=== PATIENT | female | born 1990 | race Hispanic/Latino ===

== ENCOUNTER 2022-02-21 19:57 | Day surgery (SDC) | payer OTHER ==
[2022-02-21] MEDS ORDERED: hydrALAZINE 20 MG/ML VIAL SLOW IVP PRN (21:40)
== END 2022-02-22 | disposition home or self-care (01) ==
LOC: CSHLD/OP 19:57
PROVIDERS: ATTEND Obstetrics & Gynecology
DX: O99.891 Other specified diseases and conditions complicating pregnancy (principal); R03.0 Elevated blood-pressure reading, without diagnosis of hypertension; O99.283 Endocrine, nutritional and metabolic diseases complicating pregnancy, third trimester; E03.9 Hypothyroidism, unspecified; O34.219 Maternal care for unspecified type scar from previous cesarean delivery; Z3A.34 34 weeks gestation of pregnancy; Z87.891 Personal history of nicotine dependence

== ENCOUNTER 2022-03-03 22:26 | Inpatient (IN) | payer OTHER ==
[2022-03-03] MEDS ORDERED: hydrALAZINE 20 MG/ML VIAL SLOW IVP PRN (22:45)
[2022-03-03 23:02] VITALS: BMI 30.2
[2022-03-03 23:33] LABS: #Eosinphils 0.1 10x3/uL (0.0-0.5); #Monocytes 0.8 10x3/uL (0.0-1.1); #Neutrophils 5.2 10x3/uL (1.5-8.4); %Basophils 0.2 % (0.0-2.0); %Eosinophils 0.9 % (0.0-6.0); %Lymphocytes 23.4 % (18.0-47.0); %Monocytes 10.3 % (0.0-10.0); %Neutrophils 63.8 % (40.0-75.0); Hemoglobin 10.3 g/dL (12.0-15.5); Mean Corpuscular HGB CONC 34.9 g/dL (32.0-36.0); Mean Corpuscular Hemoglobin 34.3 pg (27.0-33.0); Mean Corpuscular Volume 98.3 fl (81.6-98.3); Mean Platelet Volume 12.7 fl (7.4-10.4); Platelet Count 143 10x3/uL (150-450); White Blood Cell (WBC) Count 8.1 10x3/uL (3.5-10.5)
[2022-03-03 23:43] LABS: AST (SGOT) 23 U/L (5-34); Anion Gap 14 mmol/L (10-20); BUN (Urea Nitrogen) 11 mg/dL (7.0-18.7); Calc. Creatinine Clearance 146 mL/min (70-130); Calcium 9.3 mg/dL (7.8-10.44); Carbon Dioxide 22 mmol/L (22-29); Chloride 102 mmol/L (98-107); Glucose 80 mg/dL (70-105); Potassium 3.9 mmol/L (3.5-5.1)
[2022-03-03 23:55] LABS: Sodium 134 mmol/L (136-145)
[2022-03-04] MEDS: Lactated Ringer's 1,000 ML IV SCH ×2 (00:20→13:02)
[2022-03-04 00:28] LABS: Creatinine, Urine Less than 20.00 mg/dL (47-110)
[2022-03-04 01:18] LABS: Protein, Urine Random Quant 240 mg/dL (1-14)
[2022-03-04] MEDS ORDERED: Bicitra 30 ML UDCUP PO PRN (02:08)
[2022-03-04] MEDS ORDERED: Butorphanol Tartrate 1 MG/ML VIAL SLOW IVP PRN (02:08)
[2022-03-04] MEDS ORDERED: hydrALAZINE 20 MG/ML VIAL SLOW IVP PRN (02:08)
[2022-03-04] MEDS ORDERED: Ondansetron PF 4 MG/2 ML Vial IVP PRN ×2 (02:08→08:14)
[2022-03-04] MEDS ORDERED: Zolpidem Tartrate 5 MG TAB PO PRN (02:08)
[2022-03-04] MEDS ORDERED: Calcium Gluc 4.6 MEQ/10 ML (100 MG/ML) SLOW IVP PRN (02:08)
[2022-03-04] MEDS ORDERED: Promethazine HCl 25 MG/ML VIAL IM PRN ×2 (02:08→08:14)
[2022-03-04] MEDS ORDERED: Lorazepam 2 MG/ML VIAL SLOW IVP PRN (02:08)
[2022-03-04] MEDS ORDERED: Famotidine/PF 20 mg/2ml Vial SLOW IVP PRN (02:08)
[2022-03-04] MEDS ORDERED: ceFAZolin 2 GM/Dextrose 50 ML 2 GM in Premix Bag 1 BAG IVPB SCH (02:15)
[2022-03-04] MEDS ORDERED: Magnesium Sulfate 20 gm/500 ml 20 GM/500 ML BAG IVPB SCH ×2 (02:15)
[2022-03-04] MEDS ORDERED: Magnesium Sulfate 20 gm/500 ml 20 GM/500 ML BAG ONE (02:19)
[2022-03-04 03:24] LABS: Hemoglobin 10.9 g/dL (12.0-15.5); Mean Corpuscular HGB CONC 34.2 g/dL (32.0-36.0); Mean Corpuscular Hemoglobin 33.9 pg (27.0-33.0); Mean Corpuscular Volume 99.1 fl (81.6-98.3); Mean Platelet Volume 13.4 fl (7.4-10.4); Platelet Count 161 10x3/uL (150-450); RBC Distribution Width 14.1 % (11.5-14.5); Red Blood Cell (RBC) Count 3.22 10x6/uL (3.90-5.03); White Blood Cell (WBC) Count 9.3 10x3/uL (3.5-10.5)
[2022-03-04 03:32] LABS: Hep B Surf Ag Non-Reactive S/CO (NonReactive); Syphilis Antibody Nonreactive (Nonreactive); Syphilis Antibody Index 0.03 S/CO (<1.00 Non-Reactive)
[2022-03-04 03:40] LABS: HBSAg Index 0.19 S/CO (0-0.99)
[2022-03-04 05:05] LABS: SARS-CoV-2 NAA Rapid Test Not Detected (NotDetected)
[2022-03-04] MEDS ORDERED: Phenylephrine 40 MG/NS 250 ML 250 ML ONE (07:10)
[2022-03-04] MEDS ORDERED: Morphine PF 10 MG/10 ML VIAL ONE (07:10)
[2022-03-04] MEDS ORDERED: PHENYLEPHRINE-NS 100 MCG/ML 10 ML SYRINGE ONE (07:10)
[2022-03-04] MEDS ORDERED: Oxytocin 10 UNITS/ML VIAL ONE ×2 (07:52→08:03)
[2022-03-04] MEDS ORDERED: Meperidine HCl/PF 25 MG/ML VIAL ONE ×2 (07:52→09:28)
[2022-03-04] MEDS ORDERED: Ondansetron PF 4 MG/2 ML Vial ONE (07:54)
[2022-03-04] MEDS ORDERED: Midazolam HCl 2 mg/2 ml Vial ONE ×2 (07:55→09:28)
[2022-03-04] MEDS ORDERED: Ketorolac Tromethamine 30 MG/ML VIAL ONE (08:04)
[2022-03-04] MEDS ORDERED: Naloxone HCl 0.4 mg/ml Vial IVP PRN ×2 (08:14)
[2022-03-04] MEDS ORDERED: diphenhydrAMINE 50 MG/ML VIAL IVP PRN (08:14)
[2022-03-04] MEDS ORDERED: Moisturizing Cream (Eucerin) 113 GM JAR TOP PRN (08:14)
[2022-03-04] MEDS ORDERED: Meperidine HCl/PF 25 MG/ML VIAL SLOW IVP PRN (08:14)
[2022-03-04] MEDS ORDERED: Promethazine HCl 25 MG SUPP PR PRN (08:14)
[2022-03-04] MEDS ORDERED: Ondansetron HCl/PF 4 MG/2 ML Vial IVP PRN (08:14)
[2022-03-04] MEDS ORDERED: Fentanyl 100 MCG/2 ML VIAL SLOW IVP PRN (08:14)
[2022-03-04] MEDS ORDERED: Naloxone HCl 0.4 mg/ml Vial IV PRN (08:14)
[2022-03-04] MEDS ORDERED: HYDROmorphone 2 MG/ML VIAL SLOW IVP PRN (08:14)
[2022-03-04] MEDS ORDERED: Communication Order-Pharmacy FS SCH (08:15)
[2022-03-04] MEDS ORDERED: Ketorolac Tromethamine 30 MG/ML VIAL IVP SCH (08:15)
[2022-03-04] MEDS ORDERED: Carboprost 250 MCG/ML AMP ONE (09:00)
[2022-03-04] MEDS: Tranexamic Acid 1,000 MG/10 ML VIAL ONE ×2 (09:10→10:36)
[2022-03-04] MEDS ORDERED: NS w/ Oxytocin 30 units 500 ML ONE (09:21)
[2022-03-04] MEDS ORDERED: Misoprostol 200 MCG TAB ONE (10:33)
[2022-03-04] MEDS ORDERED: Tranexamic Acid 1,000 MG/10 ML VIAL ONE (10:33)
[2022-03-04] MEDS ORDERED: Misoprostol 200 MCG TAB PR SCH (10:45)
[2022-03-04] MEDS ORDERED: Tranexamic Acid 1,000 MG in Sodium Chloride 0.9% 250 ML 250 ML IVPB SCH (10:45)
[2022-03-04] MEDS ORDERED: Lanolin Ointment 7 GM TUBE TOP PRN (12:49)
[2022-03-04] MEDS ORDERED: diphenhydrAMINE 25 MG CAP PO PRN (12:49)
[2022-03-04] MEDS ORDERED: Bisacodyl 10 MG SUPP PR PRN (12:49)
[2022-03-04] MEDS ORDERED: Boostrix 0.5 ML (Tdap) VIAL IM ONE (12:49)
[2022-03-04] MEDS ORDERED: Misoprostol 200 MCG TAB PR PRN (12:49)
[2022-03-04] MEDS ORDERED: NS w/ Oxytocin 30 units 500 ML IV SCH (12:49)
[2022-03-04] MEDS ORDERED: Docusate 100 MG CAP PO SCH (13:00)
[2022-03-04] MEDS ORDERED: Midazolam HCl 2 mg/2 ml Vial SLOW IVP SCH (13:00)
[2022-03-04] MEDS ORDERED: Diphenoxylate HCl/Atropine Tablet PO SCH (13:15)
[2022-03-04] MEDS ORDERED: Meperidine HCl/PF 25 MG/ML VIAL SLOW IVP SCH (13:15)
[2022-03-04] MEDS: Ibuprofen 800 MG TAB PO SCH (17:35)
[2022-03-04] MEDS: Ketorolac Tromethamine 30 MG/ML VIAL IVP PRN (17:43)
[2022-03-04] MEDS ORDERED: HYDROcodone/Acetaminophen 5/325 mg Tablet PO PRN (21:00)
[2022-03-04] MEDS: HYDROcodone/Acetaminophen 5/325 mg Tablet PO PRN (21:51)
[2022-03-05] MEDS: HYDROcodone/Acetaminophen 5/325 mg Tablet PO PRN ×3 (03:13→20:37)
[2022-03-05] MEDS: Ketorolac Tromethamine 30 MG/ML VIAL IVP PRN (03:14)
[2022-03-05 04:41] LABS: Mean Corpuscular Hemoglobin 33.6 pg (27.0-33.0); Mean Corpuscular Volume 98.7 fl (81.6-98.3); Platelet Count 137 10x3/uL (150-450); RBC Distribution Width 14.1 % (11.5-14.5); Red Blood Cell (RBC) Count 2.38 10x6/uL (3.90-5.03)
[2022-03-05] MEDS: Ibuprofen 800 MG TAB PO SCH ×3 (09:30→17:21)
[2022-03-05] MEDS: Docusate 100 MG CAP PO SCH ×3 (09:31→21:48)
[2022-03-05] MEDS ORDERED: Ferrous Sulfate 325 MG TAB PO SCH (11:00)
[2022-03-05] MEDS: Misoprostol 100 MCG TAB PO SCH ×2 (11:50→17:22)
[2022-03-05] MEDS: Simethicone Chewable 80 MG TAB PO PRN ×2 (11:51→17:21)
[2022-03-05] MEDS: hydrOXYzine 25 MG TAB PO PRN (11:51)
[2022-03-05] MEDS ORDERED: Ascorbic Acid 500 mg Chewable Tablet PO SCH (12:00)
[2022-03-05] MEDS ORDERED: Prenatal Vitamin 1 TAB PO SCH (12:00)
[2022-03-05] MEDS: Lactated Ringer's 1,000 ML IV SCH ×2 (12:13→18:24)
[2022-03-06] MEDS: Ibuprofen 800 MG TAB PO SCH ×4 (00:30→17:53)
[2022-03-06] MEDS: Misoprostol 100 MCG TAB PO SCH ×2 (00:30→05:38)
[2022-03-06 03:37] LABS: #Eosinphils 0.1 10x3/uL (0.0-0.5); %Basophils 0.2 % (0.0-2.0); %Eosinophils 1.5 % (0.0-6.0); %Lymphocytes 19.9 % (18.0-47.0); %Monocytes 10.9 % (0.0-10.0); %Neutrophils 66.9 % (40.0-75.0); Hemoglobin 7.3 g/dL (12.0-15.5); Mean Corpuscular HGB CONC 33.5 g/dL (32.0-36.0); Mean Corpuscular Hemoglobin 33.8 pg (27.0-33.0); Mean Corpuscular Volume 100.9 fl (81.6-98.3); Mean Platelet Volume 11.6 fl (7.4-10.4); Platelet Count 143 10x3/uL (150-450); RBC Distribution Width 14.6 % (11.5-14.5); Red Blood Cell (RBC) Count 2.16 10x6/uL (3.90-5.03)
[2022-03-06] MEDS: hydrOXYzine 25 MG TAB PO PRN ×2 (06:12→13:20)
[2022-03-06] MEDS ORDERED: Iron Polysaccharides Complex 150 MG CAP PO SCH (08:00)
[2022-03-06] MEDS: Lactated Ringer's 1,000 ML IV SCH ×2 (09:03→12:33)
[2022-03-06] MEDS: Prenatal Vitamin 1 TAB PO SCH (10:05)
[2022-03-06] MEDS: Docusate 100 MG CAP PO SCH ×2 (10:05→20:58)
[2022-03-06] MEDS: Labetalol HCl 100 MG TAB PO SCH ×2 (10:06→20:58)
[2022-03-06] MEDS: Ascorbic Acid 500 mg Chewable Tablet PO SCH (10:07)
[2022-03-06] MEDS: Simethicone Chewable 80 MG TAB PO PRN ×2 (10:13→20:57)
[2022-03-07] MEDS: Ibuprofen 800 MG TAB PO SCH ×2 (00:23→08:45)
[2022-03-07] MEDS: Lactated Ringer's 1,000 ML IV SCH ×2 (04:12→09:24)
[2022-03-07] MEDS: HYDROcodone/Acetaminophen 5/325 mg Tablet PO PRN (04:13)
[2022-03-07] MEDS: Docusate 100 MG CAP PO SCH (08:42)
[2022-03-07] MEDS: Ascorbic Acid 500 mg Chewable Tablet PO SCH (08:42)
[2022-03-07] MEDS: Prenatal Vitamin 1 TAB PO SCH (08:43)
[2022-03-07] MEDS ORDERED: Labetalol HCl 200 MG TAB PO SCH (09:00)
[2022-03-07] MEDS ORDERED: Ferrous Sulfate 325 MG TAB PO SCH (09:00)
[2022-03-07 11:14] VITALS: BP 134/73; TEMP 98.2
== END 2022-03-07 15:00 | disposition home or self-care (01) | DRG 787 ==
LOC: CSHERS 22:26 → CSHLD 03-04 01:58 → CSHPP 03-05 12:47
PROVIDERS: ADMIT Obstetrics & Gynecology; ATTEND Obstetrics & Gynecology
PROC: 10D00Z1 Extraction of Products of Conception, Low, Open Approach (ICD-10-PCS; principal; 2022-03-04)
DX: O14.14 Severe pre-eclampsia complicating childbirth (principal); R71.0 Precipitous drop in hematocrit; Z20.822 Contact with and (suspected) exposure to COVID-19; Z3A.36 36 weeks gestation of pregnancy; Z37.0 Single live birth; O34.211 Maternal care for low transverse scar from previous cesarean delivery; F41.9 Anxiety disorder, unspecified; E03.9 Hypothyroidism, unspecified; O99.344 Other mental disorders complicating childbirth; O99.284 Endocrine, nutritional and metabolic diseases complicating childbirth; Z79.899 Other long term (current) drug therapy; Z79.890 Hormone replacement therapy; O72.2 Delayed and secondary postpartum hemorrhage; O99.893 Other specified diseases and conditions complicating puerperium
CPT/HCPCS: 36415; 51702; 80048; 82570; 84156; 84450; 85025; 85027; 86780; 86850; 86900; 86901; 87340; 99285; J0595; J0690; J1885; J2060; J2175; J2250; J2274; J2405; J2550; J2590; J3475; J3490; J7120; U0002

== ENCOUNTER 2022-03-10 19:35 | Emergency (ER) | payer OTHER ==
[2022-03-10 20:22] LABS: Bilirubin Neg (Negative); Blood, Urine 250 (Negative); Clarity Slightly Cloudy (Clear); Glucose, Urine (Dipstick) Normal (Negative); Ketone, Urine Negative (Negative); Leukocyte 500 (Negative); Nitrite Negative (Negative); Protein, Urine (Dipstick) 100 mg/dl (Neg-Trace); Specific Gravity, Urine 1.005 (1.002-1.036); Urobilinogen Normal mg/dL (Less than 2)
[2022-03-10 20:30] LABS: Bacteria/HPF 1+ HPF (None Seen); Squamous Epithelial 0-3 HPF (0-3); WBC/HPF 21-50 HPF (0-3)
== END 2022-03-10 21:00 | disposition home or self-care (01) ==
LOC: CSHERS 19:35
DX: L03.311 Cellulitis of abdominal wall (principal); N30.00 Acute cystitis without hematuria; I10 Essential (primary) hypertension; Z79.899 Other long term (current) drug therapy
CPT/HCPCS: 81003; 81015; 87086; 99283